=== PATIENT | female | born 1955 | race Caucasian/White ===

== ENCOUNTER 2020-03-21 08:14 | Day surgery (SDC) | payer MEDICARE, MEDICAID ==
[~2020-03-21 08:14] MED LIST: EPINEPHrine 1:10,000 1 MG/10 ML Syringe ONE; Midazolam 1 MG/ML 2 ML SDV ONE; Propofol 200 MG/20 ML SDV ONE; Sodium Chloride 0.9% 1,000 ML IV SCH; Sodium Chloride 0.9% 10 ML Syringe FLUSH PRN
[2020-03-21] MEDS ORDERED: Glycopyrrolate 0.2 MG/ML 5 ML MDV IV ONE (08:15)
[2020-03-21] MEDS ORDERED: Propofol 200 MG/20 ML SDV IV ONE (08:15)
[2020-03-21] MEDS ORDERED: Midazolam 1 MG/ML 2 ML SDV IV ONE (08:15)
--- NOTE | 2020-03-21 10:08 | PCM.OPNOTE ---
- General Post-Op/Procedure Note Date of Surgery/Procedure: 03/21/20 Operative Procedure(s): Upper GI Endoscopy Findings: INFORMED CONSENT: Patient is here today for elective upper GI endoscopy. All aspects of this procedure have been discussed with the patient. All possible complications also, including possibility of perforation, infection, pain, bleeding, numbness of the throat, swallowing difficulty and unknown complications. In the event of perforation the patient may need surgical ex ploration to repair the defect. The patient understands fully well. Patient did not have any further questions for me at the end of my interview. The patient wishes for me to proceed. INSTRUMENT USED: Video gastroscope ANESTHESIA: [MAC] ASA CLASSIFICATION: [] Indication: Persistent upper GI pain, discomfort and Dyspepsia. PROCEDURE PERFORMED: []Upper GI Endoscopy PHARYNX: Normal. ESOPHAGUS: Normal. Proximal: Normal. Middle: Normal. Lower: Normal. GE Junction: Normal. STOMACH: Normal. Cardia: Normal. Fundus: Normal. Lesser Curvature: Normal. Greater Curvature: Normal. Antrum: Normal. Pylorus: Normal. DUODENUM: Normal. First Part: Normal. Second Part: Normal. Third Part: Normal. RETROFLEXION: Normal. BIOPSY: None. TOLERANCE: Excellent. COMPLICATIONS: None. Pre Op Diagnosis: Iron Deficiency Anemia. Post-Op Diagnosis: Normal. Anesthesia Technique: Moderate Sedation Primary Surgeon: Charlie Feliciano Complications: None Condition: Good Free Text/Narrative:: INFORMED CONSENT: Patient is here today for elective upper GI endoscopy. All aspects of this procedure have been discussed with the patient. All possible complications also, including possibility of perforation, infection, pain, bleeding, numbness of the throat, swallowing difficulty and unknown complications. In the event of perforation the patient may need surgical exploration to repair the defect. The patient understands fully well. Patient did not have any further questions for me at the end of my interview. The patient wishes for me to proceed. INSTRUMENT USED: Video gastroscope ANESTHESIA: [MAC] ASA CLASSIFICATION: [] Indication: Iron Deficiency Anemia. PROCEDURE PERFORMED: [] Upper GI Endoscopy PHARYNX: Normal. ESOPHAGUS: Normal. Proximal: Normal. Middle: Normal. Lower: Normal. GE Junction: Normal. STOMACH: Normal. Cardia: Normal. Fundus: Normal. Lesser Curvature: Normal. Greater Curvature: Normal. Antrum: Normal. Pylorus: Normal. DUODENUM: Normal. First Part: Normal. Second Part: Normal. Third Part: Normal. RETROFLEXION: Normal. BIOPSY: None. TOLERANCE: Excellent. COMPLICATIONS: None.
== END 2020-03-21 11:30 | disposition home or self-care (01) ==
LOC: KA.SDS 08:14
PROVIDERS: ATTEND Family Medicine
DX: D50.0 Iron deficiency anemia secondary to blood loss (chronic) (principal); R10.13 Epigastric pain; E11.42 Type 2 diabetes mellitus with diabetic polyneuropathy; I10 Essential (primary) hypertension; E66.9 Obesity, unspecified; E78.5 Hyperlipidemia, unspecified; Z79.899 Other long term (current) drug therapy; Z88.5 Allergy status to narcotic agent; Z88.2 Allergy status to sulfonamides; Z88.8 Allergy status to other drugs, medicaments and biological substances; Z79.4 Long term (current) use of insulin; Z91.048 Other nonmedicinal substance allergy status; Z90.49 Acquired absence of other specified parts of digestive tract; Z98.890 Other specified postprocedural states; Z68.35 Body mass index [BMI] 35.0-35.9, adult
CPT/HCPCS: 36415; 43235; 82962; 85025; J2250; J2704; J3490; J7030; 00731